=== PATIENT | female | born 2000 | race American Indian/Alaskan Native ===

== ENCOUNTER 2021-12-18 01:42 | Emergency (ER) | payer SELFPAY ==
[2021-12-18 02:22] VITALS: BP 116/68
== END 2021-12-18 12:18 | disposition left against medical advice (07) ==
LOC: ED 01:42
DX: Z01.00 Encounter for examination of eyes and vision without abnormal findings (principal); Z53.21 Procedure and treatment not carried out due to patient leaving prior to being seen by health care provider